=== PATIENT | female | born 1975 | race American Indian/Alaskan Native ===

== ENCOUNTER 2016-08-20 13:27 | Emergency (ER) | payer OTHER ==
[2016-08-20] MEDS ORDERED: TORADOL IM ONE (16:40)
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
[2016-08-20 19:27] VITALS: BP 143/94
== END 2016-08-20 19:42 | disposition home or self-care (01) ==
LOC: ED 13:27
DX: S39.012A Strain of muscle, fascia and tendon of lower back, initial encounter (principal); S16.1XXA Strain of muscle, fascia and tendon at neck level, initial encounter; M62.830 Muscle spasm of back; V49.49XA Driver injured in collision with other motor vehicles in traffic accident, initial encounter; Y93.9 Activity, unspecified; Y92.9 Unspecified place or not applicable; Y99.9 Unspecified external cause status
CPT/HCPCS: 72040; 72100; 82962; 96372; 99283; J1885

== ENCOUNTER 2018-12-20 14:04 | Emergency (ER) | payer OTHER ==
--- NOTE | 2018-12-20 14:33 | Cat Scan Report ---
CT HEAD WITHOUT CONTRAST: HISTORY: . TECHNIQUE: Sequential 2.5mm CT images. COMPARISON: none. FINDINGS: Cerebral Parenchyma: Within normal limits. Cerebellum: Within normal limits. Brainstem: Within normal limits. Ventricles: Normal. Sella: Normal. Extra-axial spaces: Normal. Basal Cisterns: Normal. Intracranial Hemorrhage: None. Midline Shift: None. Calvarium: Normal. Sinuses: Normal. Mastoid Air Cells: Normal. Visualized Orbits: Normal. IMPRESSION: Cranial CT scan within normal limits. These findings were discussed with Dr. Navarro in the emergency department at 1420 hrs.
[2018-12-20 14:36] LABS: Basophils # (Auto) 0.1 K/mm3 (0.0-0.1); Basophils % (Auto) 1.3 % (0.0-1.8); Eosinophils # (Auto) 0.1 K/mm3 (0.0-0.4); Eosinophils % (Auto) 0.9 % (0.0-4.3); Hematocrit 40.8 % (30.3-42.9); Hemoglobin 14.3 gm/dl (10.1-14.3); Lymphocytes # (Auto) 2.3 K/mm3 (1.2-5.4); Lymphocytes % (Auto) 28.2 % (13.4-35.0); Mean Corpuscular HGB Conc 35 % (30-34); Mean Corpuscular Volume 105 fl (79-97); Monocytes # (Auto) 0.5 K/mm3 (0.0-0.8); Monocytes % (Auto) 6.3 % (0.0-7.3); Platelet Count 426 K/mm3 (140-440); Red Blood Count 3.91 M/mm3 (3.65-5.03)
--- NOTE | 2018-12-20 14:41 | Emergency Department Report ---
ED General Adult HPI - General Chief complaint: Neuro Symptoms/Deficit Stated complaint: TIGHTNESS IN FACE/TINGLING Time Seen by Provider: 12/20/18 14:34 Source: patient, RN notes reviewed Mode of arrival: Ambulatory Limitations: No Limitations - History of Present Illness Initial comments: This is a 43-year-old female. The patient is not known to this provider previously. The patient reports that she is not . She typically follows with the [facility]. Christal with a complaint of bilateral facial tightness, and feeling like her tongue is clumsy. The symptoms started at 12:00 PM. They're constant. They're painless. They do not radiate anywhere. They do not appear to have exacerbating or relieving factors. Patient reportedly has a history of hypertension, and was as of this Tuesday, taken off of her HCTZ "w ater pill" for hypokalemia. She is taking atenolol and losartan for blood pressure. She denies other complaints. -: Sudden Location: head, mouth Consistency: constant Improves with: none Worsens with: none Associated Symptoms: denies other symptoms - Related Data Previous Rx's Medication Instructions Recorded Last Taken Type Cyclobenzaprine [Flexeril] 10 mg PO TID PRN #15 tablet 08/20/16 Unknown Rx Ibuprofen [Motrin] 600 mg PO Q8H PRN #15 tablet 08/20/16 Unknown Rx Calcium Carbonate [Oscal] 1,250 mg PO QDAY #30 tablet 12/20/18 Unknown Rx Chlorhexidine Mouthwash [Peridex] 15 ml MM BID #1 bottle 12/20/18 Unknown Rx Magnesium Oxide 500 mg PO BID #60 capsule 12/20/18 Unknown Rx Potassium Chloride 20 meq PO BID #60 packet 12/20/18 Unknown Rx Allergies Allergy/AdvReac Type Severity Reaction Status Date / Time No Known Allergies Allergy Unverified 08/20/16 19:46 ED Review of Systems ROS: Stated complaint: TIGHTNESS IN FACE/TINGLING Other details as noted in HPI Constitutional: denies: fever, malaise Eyes: denies: eye discharge, vision change ENT: denies: ear pain, throat pain, dental pain, hearing loss, epistaxis, congestion Respiratory: denies: cough Cardiovascular: denies: chest pain Gastrointestinal: denies: abdominal pain, nausea, vomiting Genitourinary: denies: urgency, dysuria Musculoskeletal: denies: back pain Skin: denies: rash, lesions Neurological: numbness, paresthesias. denies: headache, weakness, confusion, abnormal gait, vertigo Psychiatric: anxiety ED Past Medical Hx - Past Medical History Previous Medical History?: Yes Hx Hypertension: Yes - Surgical History Past Surgical History?: No - Social History Smoking Status: Never Smoker Substance Use Type: None - Medications Home Medications: Home Medications Medication Instructions Recorded Confirmed Last Taken Type Cyclobenzaprine [Flexeril] 10 mg PO TID PRN #15 tablet 08/20/16 Unknown Rx Ibuprofen [Motrin] 600 mg PO Q8H PRN #15 tablet 08/20/16 Unknown Rx Calcium Carbonate [Oscal] 1,250 mg PO QDAY #30 tablet 12/20/18 Unknown Rx Chlorhexidine Mouthwash [Peridex] 15 ml MM BID #1 bottle 12/20/18 Unknown Rx Magnesium Oxide 500 mg PO BID #60 capsule 12/20/18 Unknown Rx Potassium Chloride 20 meq PO BID #60 packet 12/20/18 Unknown Rx ED Physical Exam - General Limitations: No Limitations General appearance: alert, in no apparent distress - Head Head exam: Present: atraumatic, normocephalic - Eye Eye exam: Present: normal appearance, PERRL, EOMI. Absent: nystagmus - ENT ENT exam: Present: normal exam, normal orophraynx, mucous membranes moist, TM's normal bilaterally, normal external ear exam - Neck Neck exam: Present: normal inspection, full ROM. Absent: tenderness, meningismus - Respiratory Respiratory exam: Present: normal lung sounds bilaterally. Absent: respiratory distress - Cardiovascular Cardiovascular Exam: Present: regular rate, normal rhythm, normal heart sounds. Absent: bradycardia, tachycardia, irregular rhythm, systolic murmur, diastolic murmur, rubs, gallop - GI/Abdominal GI/Abdominal exam: Present: soft. Absent: distended, tenderness, guarding, rebound, rigid, pulsatile mass - Extremities Exam Extremities exam: Present: normal inspection, full ROM, other (2+ pulses noted in the bilateral upper, lower extremities. Compartments soft. No long bony tenderness. The pelvis is stable.). Absent: pedal edema, joint swelling, calf tenderness - Back Exam Back exam: Present: normal inspection, full ROM. Absent: tenderness, CVA tenderness (R), paraspinal tenderness - Neurological Exam Neurological exam: Present: alert, oriented X3, CN II-XII intact, normal gait, other (Extraocular movements intact. Tongue midline. No facial droop. Facial sensation intact to light touch in the V1, V2, V3 distribution bilaterally. 5 and 5 strength in 4 extremities.. Sensation is intact to light touch in 4 extremities.). Absent: motor sensory deficit - Psychiatric Psychiatric exam: Present: normal affect, normal mood - Skin Skin exam: Present: warm, dry, intact, normal color. Absent: rash ED Course Vital Signs 12/20/18 12/20/18 12/20/18 14:12 14:33 14:45 Temperature 97.9 F Pulse Rate 94 H 93 H Respiratory 16 22 Rate Blood Pressure 139/86 130/86 Blood Pressure 147/91 [Right] O2 Sat by Pulse 98 Oximetry 12/20/18 12/20/18 12/20/18 15:00 15:15 15:30 Temperature Pulse Rate 88 92 H 92 H Respiratory 24 15 20 Rate Blood Pressure 125/81 125/81 123/79 Blood Pressure [Right] O2 Sat by Pulse Oximetry 12/20/18 12/20/18 12/20/18 15:45 16:00 16:15 Temperature Pulse Rate 91 H 90 95 H Respiratory 17 13 18 Rate Blood Pressure 123/79 127/74 127/74 Blood Pressure [Right] O2 Sat by Pulse Oximetry 12/20/18 12/20/18 12/20/18 16:30 16:45 17:00 Temperature Pulse Rate 92 H 93 H 85 Respiratory 15 20 17 Rate Blood Pressure 127/74 116/80 Blood Pressure [Right] O2 Sat by Pulse Oximetry 12/20/18 12/20/18 12/20/18 17:15 17:31 17:45 Temperature Pulse Rate 89 87 93 H Respiratory 15 14 17 Rate Blood Pressure 116/80 115/66 115/66 Blood Pressure [Right] O2 Sat by Pulse 99 Oximetry 12/20/18 12/20/18 12/20/18 18:00 18:15 18:30 Temperature Pulse Rate 92 H 92 H 89 Respiratory 17 19 18 Rate Blood Pressure 125/83 125/83 133/80 Blood Pressure [Right] O2 Sat by Pulse 100 100 100 Oximetry 12/20/18 12/20/18 12/20/18 18:45 19:00 19:15 Temperature Pulse Rate 89 88 91 H Respiratory 15 24 14 Rate Blood Pressure 133/80 118/69 118/69 Blood Pressure [Right] O2 Sat by Pulse 100 100 99 Oximetry - Reevaluation(s) Reevaluation #1: 12/20/18 16:30 Differential diagnosis, including but not limited to: Paresthesia, thyroid derangement, electrolyte derangement Assessment and plan: 43-year-old female with nonspecific facial numbness and sensation of tongue heaviness. The patient is not dysarthric. Her facial sensation is bilateral. She has a GCS of 15. She has an NIH score of 0. Noncontrast CT scan of the brain is negative for acute disease. Found to be hypokalemic, hypomagnesemic, and hypocalcemic. Discussed with consulting stroke neurology, Dr. Cosby, who agrees that this is likely secondary to electrolytes, and agrees the patient does not require stroke workup and evaluation. TSH appears to be unremarkable, patient speaking in normal and complete sentences. She will be given magnesium, calcium, potassium orally and intravenously, and we will observe her. Reevaluation #2: 12/20/18 19:30 Patient reassessed. Repeat examination unremarkable and unchanged. Patient endorses that she feels "fine" to go home Requests chlorhexidine for gingivitis. Has follow-up with her primary care do ctor. Endorses that she is reliable to follow-up ED Medical Decision Making - Lab Data Result diagrams: 12/20/18 14:26 12/20/18 14:26 Vital Signs 12/20/18 14:12 Temperature 97.9 F Pulse Rate 94 H Respiratory 16 Rate Blood Pressure 147/91 [Right] O2 Sat by Pulse 98 Oximetry Lab Results 12/20/18 12/20/18 12/20/18 Range/Units 14:26 14:26 14:26 WBC 8.3 (4.5-11.0) K/mm3 RBC 3.91 (3.65-5.03) M/mm3 Hgb 14.3 (10.1-14.3) gm/dl Hct 40.8 (30.3-42.9) % MCV 105 H (79-97) fl MCH 37 H (28-32) pg MCHC 35 H (30-34) % RDW 18.0 H (13.2-15.2) % Plt Count 426 (140-440) K/mm3 Lymph % (Auto) 28.2 (13.4-35.0) % Bulloch % (Auto) 6.3 (0.0-7.3) % Eos % (Auto) 0.9 (0.0-4.3) % Baso % (Auto) 1.3 (0.0-1.8) % Lymph # 2.3 (1.2-5.4) K/mm3 Bulloch # 0.5 (0.0-0.8) K/mm3 Eos # 0.1 (0.0-0.4) K/mm3 Baso # 0.1 (0.0-0.1) K/mm3 Seg Neutrophils % 63.3 (40.0-70.0) % Seg Neutrophils # 5.3 (1.8-7.7) K/mm3 PT 12.7 (12.2-14.9) Sec. INR 0.90 (0.87-1.13) APTT 26.3 (24.2-36.6) Sec. Thrombin Time 15.5 (15.1-19.6) Sec. Sodium 136 L (137-145) mmol/L Potassium 2.9 L* (3.6-5.0) mmol/L Chloride 89.8 L (98-107) mmol/L Carbon Dioxide 28 (22-30) mmol/L Anion Gap 21 mmol/L BUN 13 (7-17) mg/dL Creatinine 1.1 (0.7-1.2) mg/dL Estimated GFR > 60 ml/min BUN/Creatinine Ratio 12 % Glucose 132 H (65-100) mg/dL Calcium 7.3 L (8.4-10.2) mg/dL Magnesium (1.7-2.3) mg/dL Total Bilirubin (0.1-1.2) mg/dL Direct Bilirubin (0-0.2) mg/dL Indirect Bilirubin mg/dL AST (5-40) units/L ALT (7-56) units/L Alkaline Phosphatase (35-129) units/L Total Creatine Kinase (30-135) units/L Troponin T < 0.010 (0.00-0.029) ng/mL Total Protein (6.3-8.2) g/dL Albumin (3.9-5) g/dL Albumin/Globulin Ratio % TSH (0.270-4.200) mlU/mL 12/20/18 12/20/18 12/20/18 Range/Units 14:52 14:52 14:52 WBC (4.5-11.0) K/mm3 RBC (3.65-5.03) M/mm3 Hgb (10.1-14.3) gm/dl Hct (30.3-42.9) % MCV (79-97) fl MCH (28-32) pg MCHC (30-34) % RDW (13.2-15.2) % Plt Count (140-440) K/mm3 Lymph % (Auto) (13.4-35.0) % Bulloch % (Auto) (0.0-7.3) % Eos % (Auto) (0.0-4.3) % Baso % (Auto) (0.0-1.8) % Lymph # (1.2-5.4) K/mm3 Bulloch # (0.0-0.8) K/mm3 Eos # (0.0-0.4) K/mm3 Baso # (0.0-0.1) K/mm3 Seg Neutrophils % (40.0-70.0) % Seg Neutrophils # (1.8-7.7) K/mm3 PT (12.2-14.9) Sec. INR (0.87-1.13) APTT (24.2-36.6) Sec. Thrombin Time (15.1-19.6) Sec. Sodium (137-145) mmol/L Potassium (3.6-5.0) mmol/L Chloride (98-107) mmol/L Carbon Dioxide (22-30) mmol/L Anion Gap mmol/L BUN (7-17) mg/dL Creatinine (0.7-1.2) mg/dL Estimated GFR ml/min BUN/Creatinine Ratio % Glucose (65-100) mg/dL Calcium (8.4-10.2) mg/dL Magnesium 0.80 L* (1.7-2.3) mg/dL Total Bilirubin 0.30 (0.1-1.2) mg/dL Direct Bilirubin < 0.2 (0-0.2) mg/dL Indirect Bilirubin 0.1 mg/dL AST 58 H (5-40) units/L ALT 53 (7-56) units/L Alkaline Phosphatase 94 (35-129) units/L Total Creatine Kinase 138 H (30-135) units/L Troponin T (0.00-0.029) ng/mL Total Protein 7.7 (6.3-8.2) g/dL Albumin 4.0 (3.9-5) g/dL Albumin/Globulin Ratio 1.1 % TSH 2.140 (0.270-4.200) mlU/mL - EKG Data -: EKG Interpreted by Me EKG shows normal: sinus rhythm Rate: normal - EKG Data When compared to previous EKG there are: previous EKG unavailable - Radiology Data Radiology results: report reviewed, image reviewed Noncontrast CT scan of the brain is negative for acute disease. Critical care attestation.: If time is entered above; I have spent that time in minutes in the direct care of this critically ill patient, excluding procedure time. ED Disposition Clinical Impression: Facial paresthesia, Hypokalemia, Hypomagnesemia, Hypocalcemia Disposition: TO HOME OR SELFCARE Is pt being admited?: No Does the pt Need Aspirin: No Condition: Good Additional Instructions: Take medications as directed. Laboratory studies demonstrated decreased calcium, decreased magnesium, decreased potassium levels. Please follow-up with the primary care doctor within 7-10 days to have these levels rechecked. Please return to the emergency room right away with new pain, worsened pain, migration of pain, projectile vomiting, change in mental status, confusion, inability to tolerate liquids, new, worsening or different symptoms not present on the initial ER evaluation. Prescriptions: Magnesium Oxide 500 mg PO BID #60 capsule Calcium Carbonate [Oscal] 1,250 mg PO QDAY #30 tablet Potassium Chloride 20 meq PO BID #60 packet Referrals: MALINI MACHUCA MD [Primary Care Provider] - 3-5 Days - Assessment Assessment Interval: Baseline - Level of Consciousness 1a. Level of Consciousness: alert/keenly responsive - LOC Questions 1b. LOC Questions: answers both correctly - LOC Command 1c. LOC Commands: performs tasks correctly - Best Gaze 2. Best Gaze: normal - Visual 3. Visual: no visual loss - Facial Palsy 4. Facial Palsy: normal symmetrical movement - Motor Arm 5a. Motor Arm Left: no drift 5b. Motor Arm Right: no drift - Motor Leg 6a. Motor Leg Left: no drift 6b. Motor Leg Right: no drift - Limb Ataxia 7. Limb Ataxia: absent - Sensory 8. Sensory: normal - Best Language 9. Best Language: no aphasia - Dysarthria 10. Dysarthria: normal - Extinction and Inattention 11. Extinction/Inattention: no abnormality - Scoring Total Score: 0 Stroke Severity: No Stroke Symptoms
[2018-12-20 14:48] LABS: INR 0.9 (0.87-1.13); Partial Thromboplastin Time 26.3 Sec. (24.2-36.6); Thrombin Time 15.5 Sec. (15.1-19.6)
[2018-12-20 14:50] LABS: BUN/Creatinine Ratio 12; Blood Urea Nitrogen 13 mg/dL (7-17); Calcium 7.3 mg/dL (8.4-10.2); Hemolysis Index 2
--- NOTE | 2018-12-20 15:05 | Emergency Department Report ---
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 Calcium slightly low can take OTC supplementation, check TSH. If sx continue could f/u with neuro as oupt if they spontaneiously resolve then no additional w/u needed. From neuro standpoin no additional inpt recommendations unless new or other worrisome findings develop can f/u with PCP as oupt -TSH-can be added to the labs she had drawn or her PCP can draw them do not expect any major abnormalities -can take OTC calciium -f/u K CC: facial tingling chest tingling History of Present Illness: The patient is a pleasant 42-year-old woman who only has a history of hypertension who said that today she really felt like she had some tingling in her face and like she can open her mouth earlier. When asked why she couldn't open her mouth she said maybe the muscles were a little bit tight. She also had a tingling sensation in her chest. She does not have any focal weakness numbness or tingling on one side just the bilateral facial and chest symptoms. She has no cardiac history no history of stroke. Her calcium was borderline low at 7.3. Potassium is been low for her in the past on hydrochlorothiazide this result is still pending. Other electrolytes are pretty unremarkable. She hasn't experienced really any muscle spasms or twitches per se. No vision changes. Diagnostic Testing:CTH w/o neg Vital Signs:BP 147/91 T 97.9 Exam: Mental Status: Awake, alert, oriented Naming: Intact Repetition: Intact Speech: fluent Cranial Nerves: Pupils: Equal round and reactive to light Extraocular movements: Intact in all cardinal gaze Ptosis: Absent Visual webster: Intact to finger counting Facial sensation: Intact to pin and light touch Facial movements: Intact and symmetric Motor Exam: No drift Tremor/Abnormal Movements: Resting tremor: Absent Intention tremor: Absent Postural tremor: Absent Sensory Exam: She feels a subjective tingling sensation but no objective numbnes s on examination Light touch: Intact Pinprick: Intact Coordination: Finger to nose: Intact Heel to benson: Intact Medical Decision Making: - Extensive number of diagnosis or management options are considered above. - Extensive amount of complex data reviewed. - High risk of complication and/or morbidity or mortality are associated with differential diagnostic considerations above. - There may be uncertain outcome and increased probability of prolonged functional impairment or high probability of severe prolonged functional impairment associated with some of these differential diagnosis. Medical Data Reviewed: 1.Data reviewed include clinical labs, radiology, Medical Tests; 2.Tests results discussed w/performing or interpreting physician; 3.Obtaining/reviewing old medical records; 4.Obtaining case history from another source; 5.Independent review of image, tracing or specimen. Patient was informed the Neurology Consult would happen via telehealth (remote video) and consented to receiving care in this manner. - Related Data Home Medications: Previous Rx's Medication Instructions Recorded Last Taken Type Cyclobenzaprine [Flexeril] 10 mg PO TID PRN #15 tablet 08/20/16 Unknown Rx Ibuprofen [Motrin] 600 mg PO Q8H PRN #15 tablet 08/20/16 Unknown Rx Allergies/Adverse Reactions: Allergies Allergy/AdvReac Type Severity Reaction Status Date / Time No Known Allergies Allergy Unverified 08/20/16 19:46 ED Review of Systems ROS: Stated complaint: TIGHTNESS IN FACE/TINGLING Other details as noted in HPI ED Past Medical Hx - Past Medical History Previous Medical History?: Yes Hx Hypertension: Yes - Surgical History Past Surgical History?: No - Social History Smoking Status: Never Smoker Substance Use Type: None - Medications Home Medications: Home Medications Medication Instructions Recorded Confirmed Last Taken Type Cyclobenzaprine [Flexeril] 10 mg PO TID PRN #15 tablet 08/20/16 Unknown Rx Ibuprofen [Motrin] 600 mg PO Q8H PRN #15 tablet 08/20/16 Unknown Rx ED Neuro Physical Exam - General Limitations: No Limitations Suspected Stroke: No ED Course Vital Signs 12/20/18 14:12 Temperature 97.9 F Pulse Rate 94 H Respiratory 16 Rate Blood Pressure 147/91 [Right] O2 Sat by Pulse 98 Oximetry - Lab Data Result diagrams: 12/20/18 14:26 12/20/18 14:26 Lab Results 12/20/18 12/20/18 12/20/18 Range/Units 14:26 14:26 14:26 WBC 8.3 (4.5-11.0) K/mm3 RBC 3.91 (3.65-5.03) M/mm3 Hgb 14.3 (10.1-14.3) gm/dl Hct 40.8 (30.3-42.9) % MCV 105 H (79-97) fl MCH 37 H (28-32) pg MCHC 35 H (30-34) % RDW 18.0 H (13.2-15.2) % Plt Count 426 (140-440) K/mm3 Lymph % (Auto) 28.2 (13.4-35.0) % [place] % (Auto) 6.3 (0.0-7.3) % Eos % (Auto) 0.9 (0.0-4.3) % Baso % (Auto) 1.3 (0.0-1.8) % Lymph # 2.3 (1.2-5.4) K/mm3 [place] # 0.5 (0.0-0.8) K/mm3 Eos # 0.1 (0.0-0.4) K/mm3 Baso # 0.1 (0.0-0.1) K/mm3 Seg Neutrophils % 63.3 (40.0-70.0) % Seg Neutrophils # 5.3 (1.8-7.7) K/mm3 PT 12.7 (12.2-14.9) Sec. INR 0.90 (0.87-1.13) APTT 26.3 (24.2-36.6) Sec. Thrombin Time 15.5 (15.1-19.6) Sec. Sodium 136 L (137-145) mmol/L Chloride 89.8 L (98-107) mmol/L Carbon Dioxide 28 (22-30) mmol/L Anion Gap 21 mmol/L BUN 13 (7-17) mg/dL Creatinine 1.1 (0.7-1.2) mg/dL Estimated GFR > 60 ml/min BUN/Creatinine Ratio 12 % Glucose 132 H (65-100) mg/dL Calcium 7.3 L (8.4-10.2) mg/dL Troponin T < 0.010 (0.00-0.029) ng/mL Critical care attestation.: If time is entered above; I have spent that time in minutes in the direct care of this critically ill patient, excluding procedure time. ED Disposition Clinical Impression: Facial paresthesia Disposition: DC-01 TO HOME OR SELFCARE Is pt being admited?: No Condition: Stable
[2018-12-20 15:32] LABS: Alanine Aminotransferase 53 units/L (7-56)
[2018-12-20 15:33] LABS: Bilirubin,Direct < 0.2 mg/dL (0-0.2)
[2018-12-20] MEDS ORDERED: OSCAL PO STA (15:41)
[2018-12-20] MEDS ORDERED: K-DUR PO ONE (15:41)
[2018-12-20] MEDS ORDERED: MAGNESIUM SULFATE 1 GM in NACL 0.9% 50 ML IV ONE (15:41)
[2018-12-20] MEDS ORDERED: CALCIUM GLUCONATE 1,000 MG in NACL 0.9% 100 ML IV ONE (15:41)
[2018-12-20] MEDS ORDERED: MAGNESIUM SULFATE 2GM/50ML 2 GM/50 ML BAG IV ONE (15:41)
[2018-12-20] MEDS ORDERED: MAG-OX PO STA (16:25)
[2018-12-20] MEDS: KCL 10MEQ/100ML 10 MEQ/100 ML BAG IV SCH ×4 (18:10→22:27)
[2018-12-20] MEDS ORDERED: NACL 0.9% 250ML 250 ML ONE (22:13)
[2018-12-20 23:35] VITALS: BP 127/75
== END 2018-12-20 23:35 | disposition home or self-care (01) ==
LOC: ED 14:04
DX: R20.2 Paresthesia of skin (principal); I10 Essential (primary) hypertension; E87.6 Hypokalemia; E83.42 Hypomagnesemia; E83.51 Hypocalcemia
CPT/HCPCS: 36415; 70450; 80048; 80076; 82550; 82962; 83735; 84443; 84484; 85025; 85610; 85670; 85730; 93005; 93010; 96365; 96366; 96367; 96368; 96375; 99285; J0610; J3475; J3480; J7050

== ENCOUNTER 2021-06-04 17:15 | Outpatient (CLI) | payer OTHER | END 2021-06-04 17:16 | disposition home or self-care (01) | LOC: SPVWC 17:15 | PROVIDERS: ATTEND Family Medicine | DX: Z12.31 Encounter for screening mammogram for malignant neoplasm of breast (principal) | CPT/HCPCS: 77067 ==